=== PATIENT | female | born 1995 | race Caucasian/White ===

== ENCOUNTER 2017-07-18 10:56 | Emergency (ER) | payer OTHER ==
[2017-07-18 11:05] VITALS: BMI 29.5
--- NOTE | 2017-07-18 11:29 | PDOC ---
History of Present Illness - General Chief Complaint: Vomiting/Diarrhea Stated Complaint: DIARRHEA/VOMITING Time Seen by Provider: 07/18/17 11:14 History Source: Patient Exam Limitations: No Limitations - History of Present Illness Initial Comments: 07/18/17 11:29 The patient is a 22F with no PMH who presents to the ER with complaints of nausea, vomiting, diarrhea, and abdominal pain. The patient states that she's had a diarrhea since 4 days ago which progressed to nausea and vomiting yesterday. She vomited 7 times yesterday, NBNB. She states she had a fever of 101 yesterday which she took motrin for and it resolved. She describes suprapubic and epigastric abdominal pressure, nonradiating, not exacerbated or alleviated by anything. LMP now. She denies any recent travel, sick contacts, or abx use. Past History - Past Medical History Allergies/Adverse Reactions: Allergies Allergy/AdvReac Type Severity Reaction Status Date / Time No Known Allergies Allergy Verified 07/18/17 11:04 Home Medications: Ambulatory Orders Ondansetron [Zofran -] 4 mg PO BID #14 tablet 07/18/17 Asthma: No Cancer: No Cardiac Disorders: No COPD: No Diabetes: No HTN: No Seizures: No Thyroid Disease: No - Immunization History Td Vaccination: No Immunization Up to Date: Yes - Suicide/Smoking/Psychosocial Hx Smoking Status: No Smoking History: Never smoked Have you smoked in the past 12 months: No Number of Cigarettes Smoked Daily: 0 Cigars Per Day: 0 Hx Alcohol Use: No Drug/Substance Use Hx: No Hx Substance Use Treatment: No Review of Systems - Review of Systems Able to Perform ROS?: Yes Comments:: 07/18/17 11:46 GENERAL/CONSTITUTIONAL: No fever or chills. No weakness. HEAD, EYES, EARS, NOSE AND THROAT: No change in vision. No ear pain or discharge. No sore throat. CARDIOVASCULAR: No chest pain, palpitations, or lightheadedness. RESPIRATORY: No cough, wheezing, shortness of breath, or hemoptysis. GASTROINTESTINAL: Positive for nausea, vomiting, diarrhea, and abdominal pain. GENITOURINARY: No dysuria, frequency, hematuria, or change in urination. MUSCULOSKELETAL: No joint or muscle swelling or pain. No neck or back pain. SKIN: No rash or lesions. NEUROLOGIC: No headache, numbness, tingling, weakness, loss of consciousness, or change in strength/sensation. ENDOCRINE: No increased thirst. No abnormal weight change. HEMATOLOGIC/LYMPHATIC: No anemia, easy bleeding, or history of blood clots. ALLERGIC/IMMUNOLOGIC: No hives or skin allergy. Is the patient limited Macanese proficient: No *Physical Exam - Vital Signs Last Vital Signs Temp Pulse Resp BP Pulse Ox 98.6 F 82 18 111/69 99 07/18/17 11:02 07/18/17 11:02 07/18/17 11:02 07/18/17 11:02 07/18/17 11:02 - Physical Exam Comments: 07/18/17 11:56 GENERAL: Well developed, well nourished. Awake and alert. No acute distress. HEENT: Normocephalic, atraumatic. Hearing grossly normal. Moist mucous membranes. PERRLA, EOMI. No conjunctival pallor. Sclera are non-icteric. Oropharynx is clear. NECK: Supple. Full ROM. No JVD. Carotid pulses 2+ and symmetric, without bruits. No thyromegaly. No lymphadenopathy. CARDIOVASCULAR: Regular rate and rhythm. No murmurs, rubs, or gallops. Distal pulses are 2+ and symmetric. PULMONARY: No evidence of respiratory distress. Lungs clear to auscultation bilaterally. No wheezing, rales or rhonchi. ABDOMINAL: Soft. Tender to deep palpation in epigastrium and b/l lower quadrants. No McBurney's point tenderness. Negative garcia's. Non-distended. No rebound or guarding. No organomegaly. Normoactive bowel sounds. GENITOURINARY: L CVA tenderness. MUSCULOSKELETAL: Normal range of motion at all joints. No bony deformities or tenderness. EXTREMITIES: No cyanosis. No clubbing. No edema. No calf tenderness or swelling. SKIN: Warm and dry. Normal capillary refill. No rashes. No jaundice. NEUROLOGICAL: Alert, awake, appropriate. Cranial nerves 2-12 intact. Normal speech. Gait is normal without ataxia. PSYCHIATRIC: Cooperative. Good eye contact. Appropriate mood and affect. ED Treatment Course - LABORATORY CBC & Chemistry Diagram: 07/18/17 11:40 07/18/17 11:40 Medical Decision Making - Medical Decision Making 07/18/17 11:58 The patient is a 22F with no PMH who presents to the ER with 4 days of nausea, vomiting, diarrhea. Will send basic labs, UA, and lipase to evaluate for acute intraabdominal pathology. She has no guarding or rebound and I am not concerned for peritonitis. Will give fluids, zofran, and pepcid and reassess. 07/18/17 13:14 Pt states she feels much better. Will give 1 more L and reassess. Will give juice for PO challenge. 07/18/17 15:19 Pt tolerated the PO challenge and feels better. Abdomen soft nontender. Will d/ c home with PCP f/u. *DC/Admit/Observation/Transfer Diagnosis at time of Disposition: Nausea & vomiting Qualifiers: Vomiting type: unspecified Vomiting Intractability: non-intractable Qualified Code(s): R11.2 - Nausea with vomiting, unspecified - Discharge Dispostion Disposition: HOME Condition at time of disposition: Stable Decision to Admit order: No - Prescriptions Prescriptions: Ondansetron [Zofran -] 4 mg PO BID #14 tablet - Referrals Referrals: [facility] [place] [Provider Group] - Patient Instructions Printed Discharge Instructions: Nausea and Vomiting-Adult Additional Instructions: Please follow up with your primary care physician in 2-3 days. Please return to the ER if you have any signs or symptoms of chest pain, shortness of breath, uncontrollable fever, chills, nausea, vomiting, numbness, tingling, or weakness in any part of your body, changes in vision, or slurred speech. Please take your medications as prescribed. Please return to the ER if symptoms persist, worsen, or new symptoms arise. - Post Discharge Activity
[2017-07-18] MEDS ORDERED: SODIUM CHLORIDE 0.9% 1000 ML INFUS.BAG IV ONE ×2 (11:30→13:14)
[2017-07-18] MEDS ORDERED: ONDANSETRON 4 MG/2 ML VIAL IVPUSH ONE (11:30)
[2017-07-18] MEDS ORDERED: FAMOTIDINE 20 MG/50 ML IVPB 20 MG/50 ML MG IVPB ONE (11:30)
[2017-07-18] MEDS ORDERED: ONDANSETRON 4 MG/2 ML VIAL ONE (11:39)
[2017-07-18 11:54] LABS: BASO % 0.5 % (0-2.0); EOS % 0.3 % (0-4.5); HEMATOCRIT 39.5 % (32.4-45.2); HEMOGLOBIN 13.5 GM/dL (10.7-15.3); LYMPH % 14.8 % (8-40); MCHC 34.3 g/dl (32.0-36.0); MEAN CELL VOLUME 87.4 fl (80-96); MONO % 4.1 % (3.8-10.2); NEUT % 80.3 % (42.8-82.8); PLATELET COUNT 304 K/MM3 (134-434); RBC 4.52 M/mm3 (3.60-5.2); RDW 13.7 % (11.6-15.6); WHITE BLOOD COUNT 7.1 K/mm3 (4.0-10.0)
[2017-07-18 12:40] LABS: ALBUMIN 3.7 g/dl (3.4-5.0); ALK PHOS 113 U/L (45-117); ANION GAP 8 (8-16); BILIRUBIN,TOTAL 0.2 mg/dL (0.2-1.0); BLOOD UREA NITROGEN 10 mg/dL (7-18); CALCIUM 8.3 mg/dL (8.5-10.1); CHLORIDE 105 mmol/L (98-107); CO2 23 mmol/L (21-32); CREATININE 0.7 mg/dL (0.55-1.02); GLUCOSE,RANDOM 85 mg/dL (74-106); LIPASE 167 U/L (73-393); POTASSIUM 3.4 mmol/L (3.5-5.1); SGOT/AST 45 U/L (15-37); SGPT/ALT 40 U/L (12-78); SODIUM 136 mmol/L (136-145); TOT PROT 7.7 g/dl (6.4-8.2)
--- NOTE | 2017-07-18 13:19 | PDOC ---
Attending Attestation - Resident Resident Name: Adriel Whiteside - ED Attending Attestation I have performed the following: I have examined & evaluated the patient, The case was reviewed & discussed with the resident, I agree w/resident's findings & plan, Exceptions are as noted - HPI HPI: 07/18/17 13:20 22 yo F with no pmhx here with 4 days of n/v/d. no sick contacts. no recent antiobiotics. no travel. no mod factors. c/o mild epigastric and bilat lower quad abd pain. pt is currenlty menstruating, not . pain is mild crampy, no mod factors. - Physicial Exam PE: 07/18/17 13:17 awake alert lungs clear no crackles. heart rrr no mrg. abd soft mild epigastric ttp, lower quad ttp. ext wwp. no edema. no cva tenderness. nuero alert oriented moves all four ext. 07/18/17 13:17 - Medical Decision Making 07/18/17 13:18 n/v/d x 4 . differential: gastritis, dehydration renal failure, pancreatitis. . plan iv hydration, labs lipase, antiemetics, antacid, reassess.
[2017-07-18 13:33] LABS: URINE APPEARANCE CLEAR; URINE BILIRUBIN NEGATIVE (<2.0 mg/dL); URINE COLOR LTYELLOW; URINE GLUCOSE (UA) NEGATIVE (NEGATIVE); URINE KETONE 1+ (NEGATIVE); URINE LEUK ESTERASE NEGATIVE (NEGATIVE); URINE NITRITE NEGATIVE (NEGATIVE); URINE PROTEIN NEGATIVE (NEGATIVE); URINE UROBILINOGEN NEGATIVE mg/dL (0.2-1.0)
[2017-07-18 13:53] LABS: EPI CELLS RARE /HPF (FEW); URINE MUCUS RARE
[2017-07-18] MEDS ORDERED: MAG HYDROX/AL HYDROX/SIMETH 30 ML UNIT-DOSE CUP PO ONE (14:50)
[2017-07-18] MEDS ORDERED: LIDOCAINE VISCOUS 2% ORAL/TOP 20 ML UNIT-DOSE CUP MM ONE (14:51)
[2017-07-18 14:54] VITALS: BP 108/63; PULSE 80; TEMP 98.1
[2017-07-18] MEDS ORDERED: LIDOCAINE VISCOUS 2% ORAL/TOP 20 ML UNIT-DOSE CUP ONE (14:56)
[2017-07-18] MEDS ORDERED: MAG HYDROX/AL HYDROX/SIMETH 30 ML UNIT-DOSE CUP ONE (14:56)
== END 2017-07-18 15:46 | disposition home or self-care (01) ==
LOC: JER 10:56
PROC: 3E033GC Introduction of Other Therapeutic Substance into Peripheral Vein, Percutaneous Approach (ICD-10-PCS; principal; 2017-07-18)
PROC: 3E033GC Introduction of Other Therapeutic Substance into Peripheral Vein, Percutaneous Approach (ICD-10-PCS; 2017-07-18)
DX: R19.8 Other specified symptoms and signs involving the digestive system and abdomen (principal); R11.2 Nausea with vomiting, unspecified
CPT/HCPCS: 36415; 80053; 81003; 81015; 83690; 84703; 85025; 87086; 96365; 96375; 99282-25; J7030

== ENCOUNTER 2017-12-18 15:28 | Emergency (ER) | payer OTHER ==
[2017-12-18] MEDS ORDERED: FAMOTIDINE 20 MG/50 ML IVPB 20 MG/50 ML MG IVPB ONE ×3 (16:15→17:23)
[2017-12-18] MEDS ORDERED: ONDANSETRON 4 MG/2 ML VIAL IVPB ONE (16:15)
--- NOTE | 2017-12-18 16:18 | PDOC ---
Rapid Medical Evaluation Chief Complaint: Nausea/Vomiting Time Seen by Provider: 12/18/17 16:13 Medical Evaluation: Allergies Allergy/AdvReac Type Severity Reaction Status Date / Time No Known Allergies Allergy Verified 10/08/17 12:26 12/18/17 16:13 c/o 5-6 x vomiting and epuigastric pain today. currently 22 weeks . denies vaginal bleeding and abdominal cramping. PE: patient alert Ox3. gravid abdomen, tachycardia A: abdominal pain P; labs IVF pepcid patient to the ER for further management of care. Discharge Disposition - Diagnosis Nausea and vomiting during - Referrals Referrals: Jacob Cunningham MD [Primary Care Provider] - - Patient Instructions - Post Discharge Activity
[2017-12-18 16:24] VITALS: TEMP 98.4; BMI 27.3
[2017-12-18] MEDS ORDERED: SODIUM CHLORIDE 1,000 ML IV STA (16:42)
[2017-12-18] MEDS ORDERED: ONDANSETRON 4 MG/2 ML VIAL ONE (16:50)
--- NOTE | 2017-12-18 16:51 | PDOC ---
Attending Attestation - HPI HPI: 12/18/17 17:37 The patient is a 22-year-old female, 22 weeks , presents to the emergency department complaining of nausea and vomiting for the past 2 days. The patient reports having multiple episodes of NBNB emesis, associated with epigastric pain. - Medical Decision Making 12/18/17 17:37 Documentation prepared by Ashley Brito, acting as medical administrator for Gilbert Graff MD. <Ashley Brito - Last Filed: 12/18/17 17:37> - Resident Resident Name: Evie Romero - ED Attending Attestation I have performed the following: I have examined & evaluated the patient, The case was reviewed & discussed with the resident, I agree w/resident's findings & plan, Exceptions are as noted - Physicial Exam PE: 12/18/17 18:39 Patient is awake and alert, well-appearing, normotensive, afebrile; Normocephalic, atraumatic PERRLA, EOMI, conjunctiva are pink CTA RRR Abdomen is soft, with a fundus of a gravid uterus palpable above the umbilicus; nontender to palpation; No lower extremity edema no rash - Medical Decision Making 12/18/17 18:40 patient is 22-year-old female,a 3 para 2, At 22 weeks gestation by LMP who presents with several episodes of nausea and nonbloody nonbilious vomiting. Patient is afebrile and normotensive. I do not suspect help syndrome or preeclampsia at this time. There is no right upper quadrant tenderness or lower extremity edema. CBC reveals normal platelets and CMP reveals normal LFTs. Urinalysis shows 1+ proteinuria only with numerous epithelial cells. There are 16 WBCs per high-power field consistent with asymptomatic bacteriuria. Patient' s received IV fluids, H2 blockers and has tolerated by mouth. Patient currently is asymptomatic without any focal tenderness. Will discharge with Diclegis for nausea and Keflex for bacteriuria with OB follow-up. <Gilbert Graff - Last Filed: 12/18/17 18:43>
--- NOTE | 2017-12-18 16:57 | PDOC ---
History of Present Illness - General Chief Complaint: Nausea Stated Complaint: Nausea/Vomiting/ABD PAIN Time Seen by Provider: 12/18/17 16:13 History Source: Patient Exam Limitations: No Limitations - History of Present Illness Initial Comments: 12/18/17 16:50 This is a 22 year old female , who is 22 weeks that follows up with regularly with [facility], with history of hyperemeisis, presenting with nausea and vomiting for two days. States that yesterday she ate rice, and was unable to hold down food all day. She vomiting 6 times today, endorses retching , and blood tinged sputum and epigastric tenderness. Denies fever, chills, cough , chest pain, shortness of breath, abdominal pain/pelvic pain, leg swelling, or sick contacts. Last OB appointment was last week, which was normal. Past History - Past Medical History Allergies/Adverse Reactions: Allergies Allergy/AdvReac Type Severity Reaction Status Date / Time No Known Allergies Allergy Verified 12/18/17 16:16 Home Medications: Ambulatory Orders Ondansetron [Zofran -] 4 mg PO BID #14 tablet 09/16/17 Doxylamine Succinate/Vit B6 [Yann Shaw 10-10 mg Tablet] 1 each PO DAILY #10 tablet. 10/08/17 Famotidine [Pepcid -] 20 mg PO DAILY 7 Days #7 tablet 10/08/17 Metoclopramide HCl [Reglan -] 10 mg PO DAILY #7 tablet 10/08/17 Cephalexin [Keflex] 500 mg PO BID 5 Days #10 capsule 12/18/17 Doxylamine Succinate/Vit B6 [Yann Shaw 10-10 mg Tablet] 1 each PO Q12H PRN 5 Days #10 tablet. 12/18/17 Asthma: No Cancer: No Cardiac Disorders: No COPD: No DVT: No Diabetes: No HTN: No Seizures: No Thyroid Disease: No - Immunization History Td Vaccination: No Immunization Up to Date: Yes - Suicide/Smoking/Psychosocial Hx Smoking Status: No Smoking History: Never smoked Have you smoked in the past 12 months: No Number of Cigarettes Smoked Daily: 0 Cigars Per Day: 0 Hx Alcohol Use: No Drug/Substance Use Hx: No Substance Use Type: None Hx Substance Use Treatment: No Review of Systems - Review of Systems Able to Perform ROS?: Yes Is the patient limited Khmer proficient: No Constitutional: Yes: Weight Stable. No: Chills, Diaphoresis, Fever, Night Sweats, Weakness HEENTM: No: Blurred Vision, Tearing Respiratory: Yes: Other (blood tinged sputum). No: Cough, Orthopnea, Shortness of Breath, SOB with Exertion, Wheezing, Productive cough Cardiac (ROS): No: Chest Pain, Edema, Irregular Heart Rate, Lightheadedness, Palpitations ABD/GI: Yes: Nausea, Poor Appetite, Poor Fluid Intake, Indigestion. No: Abdominal Distended, Difficulty Swallowing : No: Burning, Dysuria, Discharge Neurological: No: Headache, Numbness, Paresthesia, Seizure, Tingling, Tremors Endocrine: No: Excessive Sweating, Flushing, Intolerance to Heat, Increased Hunger Hematologic/Lymphatic: No: Anemia, Blood Clots *Physical Exam - Vital Signs Last Vital Signs Temp Pulse Resp BP Pulse Ox 98.4 F 71 18 113/70 99 12/18/17 16:16 12/18/17 16:16 12/18/17 16:16 12/18/17 16:16 12/18/17 16:16 - Physical Exam General Appearance: Yes: Appropriately Dressed HEENT: positive: Normal Voice, Pharynx Normal. negative: Pharyngeal Erythema, Tonsillar Erythema, Nasal Congestion, Sinus Tenderness Neck: negative: Normal Thyroid, Lymphadenopathy (R), Lymphadenopathy (L) Respiratory/Chest: positive: Lungs Clear, Normal Breath Sounds. negative: Chest Tender, Respiratory Distress, Crackles, Wheezing Cardiovascular: positive: Regular Rhythm, Regular Rate, S1, S2. negative: Edema , JVD, Murmur Vascular Pulses: Carotid (R): 2+, Carotid (L): 2+ Gastrointestinal/Abdominal: positive: Normal Bowel Sounds, Tender (mid epigastric tenderness), Soft. negative: Pulsatile Mass, Guarding Extremity: positive: Normal Inspection Integumentary: positive: Normal Color Neurologic: positive: Fully Oriented, Alert, Normal Mood/Affect ED Treatment Course - LABORATORY CBC & Chemistry Diagram: 12/18/17 17:01 12/18/17 17:01 Medical Decision Making - Medical Decision Making 12/18/17 17:00 This is a 22 year old female , 22 weeks , with history of hyperemesis, intractable vomiting. R/o infectious process, preeclampisa, will treat with antiemetic and fluids. Reevalute. #N/V: -lactated ringer; cbc. cmp. mg. ua 12/18/17 18:22 -cbc, lfts, electrolytes wnl -patient feels better -will dc home with with doxylamine and vitamin b6 12/18/17 18:38 -Nausea/vomiting; treat with doxylamine/pyridoxine; 1 tab bid prn -Asymptomatic bacteremia; keflex 500bid x 5 days. -dc home; follow up with [facility] *DC/Admit/Observation/Transfer Diagnosis at time of Disposition: Nausea and vomiting during , Asymptomatic bacteriuria Nausea & vomiting Qualifiers: Vomiting Intractability: unspecified - Discharge Dispostion Disposition: HOME Condition at time of disposition: Improved Decision to Admit order: No - Prescriptions Prescriptions: Doxylamine Succinate/Vit B6 [Yann Shaw 10-10 mg Tablet] 1 each PO Q12H PRN 5 Days #10 tablet. PRN Reason: Nausea And/Or Vomiting - Referrals Referrals: Jacob Cunningham MD [Primary Care Provider] - - Patient Instructions Additional Instructions: Ms Contreras, you have nausea and vomiting, treated with fluids and anti nausea medication. We sent a script to pharmacy to take medications as needed for nausea twice a day. We are also treating you for bacteria in your urine. Please take antibiotic, keflex, 500mg twice a day for five days. 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 - Post Discharge Activity
[2017-12-18] MEDS ORDERED: DEXTROSE 5%-LACTATED RINGERS 1,000 ML IV SCH (17:00)
[2017-12-18 17:31] LABS: BASO % 0.2 % (0-2.0); EOS % 1.3 % (0-4.5); HEMATOCRIT 34.7 % (32.4-45.2); HEMOGLOBIN 12.3 GM/dL (10.7-15.3); LYMPH % 12.3 % (8-40); MCH 32.5 pg (25.7-33.7); MCHC 35.3 g/dl (32.0-36.0); MEAN CELL VOLUME 91.9 fl (80-96); MEAN PLT VOLUME 9.6 fl (7.5-11.1); MONO % 4.4 % (3.8-10.2); NEUT % 81.8 % (42.8-82.8); PLATELET COUNT 303 K/MM3 (134-434); RBC 3.78 M/mm3 (3.60-5.2); RDW 14.2 % (11.6-15.6); WHITE BLOOD COUNT 9.1 K/mm3 (4.0-10.0)
[2017-12-18 17:50] LABS: URINE APPEARANCE CLOUDY; URINE BILIRUBIN NEGATIVE (<2.0 mg/dL); URINE COLOR DKYELLOW; URINE GLUCOSE (UA) NEGATIVE (NEGATIVE); URINE KETONE 2+ (NEGATIVE); URINE LEUK ESTERASE 1+ (NEGATIVE); URINE NITRITE NEGATIVE (NEGATIVE); URINE PROTEIN 1+ (NEGATIVE)
[2017-12-18 18:12] LABS: ALBUMIN 2.9 g/dl (3.4-5.0); ALK PHOS 86 U/L (45-117); ANION GAP 10 MMOL/L (8-16); BILIRUBIN,TOTAL 0.3 mg/dL (0.2-1); BLOOD UREA NITROGEN 9 mg/dL (7-18); CALCIUM 8.6 mg/dL (8.5-10.1); CHLORIDE 104 mmol/L (98-107); CO2 24 mmol/L (21-32); CREATININE 0.4 mg/dL (0.55-1.3); GLUCOSE,RANDOM 68 mg/dL (74-106); LIPASE 204 U/L (73-393); POTASSIUM 3.7 mmol/L (3.5-5.1); SGOT/AST 23 U/L (15-37); SGPT/ALT 15 U/L (13-61); SODIUM 137 mmol/L (136-145); TOT PROT 6.8 g/dl (6.4-8.2)
[2017-12-18 18:30] LABS: EPI CELLS MANY /HPF (FEW); URINE BACTERIA RARE /hpf (NONE SEEN); URINE MUCUS MANY
[2017-12-18 19:07] VITALS: BP 103/57; PULSE 70
[2017-12-18 20:07] LABS: MAGNESIUM 2.1 mg/dL (1.8-2.4)
== END 2017-12-18 19:07 | disposition home or self-care (01) ==
LOC: JER 15:28
PROC: 3E033GC Introduction of Other Therapeutic Substance into Peripheral Vein, Percutaneous Approach (ICD-10-PCS; principal; 2017-12-18)
PROC: 3E033GC Introduction of Other Therapeutic Substance into Peripheral Vein, Percutaneous Approach (ICD-10-PCS; 2017-12-18)
PROC: 3E0337Z Introduction of Electrolytic and Water Balance Substance into Peripheral Vein, Percutaneous Approach (ICD-10-PCS; 2017-12-18)
PROC: 3E0337Z Introduction of Electrolytic and Water Balance Substance into Peripheral Vein, Percutaneous Approach (ICD-10-PCS; 2017-12-18)
DX: O26.892 Other specified pregnancy related conditions, second trimester (principal); O21.9 Vomiting of pregnancy, unspecified; O21.2 Late vomiting of pregnancy; R82.71 Bacteriuria; Z3A.22 22 weeks gestation of pregnancy
CPT/HCPCS: 36415; 80053; 81003; 81015; 83690; 83735; 85025; 96361; 96365; 96375; 99283-25; J7030

== ENCOUNTER 2018-03-18 12:06 | Emergency (ER) | payer OTHER ==
[2018-03-18 12:21] VITALS: BMI 25.0
[2018-03-18] MEDS ORDERED: ONDANSETRON *ODT* 4 MG TABLET SL ONE (13:05)
[2018-03-18] MEDS ORDERED: ACETAMINOPHEN 650 MG/20.3 ML ORAL SOLUTION (CUPS) PO ONE (13:05)
[2018-03-18] MEDS ORDERED: ALBUTEROL SO4 2.5/IPRATROPIUM 0.5 INH SOL 3 ML VIAL.NEB. NEB ONE ×2 (13:05→13:08)
--- NOTE | 2018-03-18 13:05 | PDOC ---
History of Present Illness - General Chief Complaint: Cold Symptoms Stated Complaint: SICK Time Seen by Provider: 03/18/18 12:40 History Source: Patient Exam Limitations: No Limitations - History of Present Illness Initial Comments: 03/18/18 18:55 Patient is a 22-year-old female currently 35 weeks who presents with 2 days of fever, cough, body aches, nausea and chest tightness. Patient states that her son recently had similar symptoms. Patient states that it hurts to take a deep breath and that it and that it feels tight. She's tried taking Tylenol at home with minimal relief of her symptoms. Patient did not receive a flu shot this year. Denies sore throat, runny nose, shortness of breath, chest pain, vomiting, diarrhea, dizziness, weakness and vaginal bleeding. Past History - Travel Traveled outside of the country in the last 30 days: No Close contact w/someone who was outside of country & ill: No - Past Medical History Allergies/Adverse Reactions: Allergies Allergy/AdvReac Type Severity Reaction Status Date / Time No Known Allergies Allergy Verified 03/18/18 14:45 Home Medications: Ambulatory Orders Doxylamine Succinate/Vit B6 [Yann Shaw 10-10 mg Tablet] 1 each PO DAILY #10 tablet. 10/08/17 Acetaminophen [Tylenol] 650 mg PO QID PRN 03/18/18 Albuterol 0.083% Nebulizer Mariama [Ventolin 0.083% Nebulizer Soln -] 1 neb NEB Q6H #20 vial 03/18/18 Oseltamivir Phosphate [Tamiflu] 75 mg PO BID #10 capsule 03/18/18 Asthma: No Cancer: No Cardiac Disorders: No COPD: No DVT: No Diabetes: No HTN: No Seizures: No Thyroid Disease: No - Immunization History Td Vaccination: No Immunization Up to Date: Yes - Suicide/Smoking/Psychosocial Hx Smoking Status: No Smoking History: Never smoked Have you smoked in the past 12 months: No Number of Cigarettes Smoked Daily: 0 Cigars Per Day: 0 Hx Alcohol Use: No Drug/Substance Use Hx: No Substance Use Type: None Hx Substance Use Treatment: No Review of Systems - Review of Systems Able to Perform ROS?: Yes Comments:: 03/18/18 17:48 CONSTITUTIONAL: Present: Fever, chills, body aches Absent: diaphoresis, generalized weakness, malaise, loss of appetite HEENT: Present: rhinorrhea, nasal congestion, throat pain. Absent: difficulty swallowing, mouth swelling, ear pain, eye pain, visual Changes CARDIOVASCULAR: Absent: chest pain, loss of consciousness, palpitations, irregular heart rate, peripheral edema RESPIRATORY: Present: Cough Absent: shortness of breath, dyspnea with exertion, orthopnea, wheezing, stridor, hemoptysis GASTROINTESTINAL: Absent: abdominal pain, abdominal distension, nausea, vomiting, diarrhea, constipation, melena, hematochezia SKIN: Absent: rash, itching, pallor NEUROLOGIC: Present: headache Absent: focal weakness or paresthesias, dizziness, unsteady gait, seizure, mental status changes, bladder or bowel incontinence Is the patient limited Wolof proficient: No *Physical Exam - Vital Signs Last Vital Signs Temp Pulse Resp BP Pulse Ox 98.7 F 106 H 26 H 103/64 98 03/18/18 12:19 03/18/18 12:19 03/18/18 12:19 03/18/18 12:19 03/18/18 12:19 - Physical Exam Comments: 03/18/18 18:55 GENERAL: Well developed, well nourished. Awake and alert. No acute distress. HEENT: Normocephalic, atraumatic. PERRLA, EOMI. No conjunctival pallor. Sclera are non- icteric. Moist mucous membranes. Oropharynx is clear. NECK: Supple. Full ROM. No JVD. Carotid pulses 2+ and symmetric, without bruits. No thyromegaly. No lymphadenopathy. CARDIOVASCULAR: Regular rate and rhythm. No murmurs, rubs, or gallops. Distal pulses are 2+ and symmetric. PULMONARY: No evidence of respiratory distress. Lungs clear to auscultation bilaterally. No wheezing, rales or rhonchi. ABDOMINAL: Soft. Non-tender. Non-distended. No rebound or guarding. No organomegaly. Normoactive bowel sounds. MUSCULOSKELETAL Normal range of motion at all joints. No bony deformities or tenderness. No CVA tenderness. EXTREMITIES: No cyanosis. No clubbing. No edema. No calf tenderness. SKIN: Warm and dry. Normal capillary refill. No rashes. No jaundice. NEUROLOGICAL: Alert, awake, appropriate. Cranial nerves 2-12 intact. No deficits to light touch and temperature in face, upper extremities and lower extremities. No motor deficits in the in face, upper extremities and lower extremities. Normoreflexic in the upper and lower extremities. Normal speech. Toes are down- going bilaterally. Gait is normal without ataxia. PSYCHIATRIC: Cooperative. Good eye contact. Appropriate mood and affect. Moderate Sedation - Procedure Monitoring Vital Signs: Procedure Monitoring Vital Signs Temperature 98.7 F 03/18/18 12:19 Pulse Rate 106 H 03/18/18 12:19 Respiratory Rate 26 H 03/18/18 12:19 Blood Pressure 103/64 03/18/18 12:19 O2 Sat by Pulse Oximetry (%) 98 03/18/18 12:19 Medical Decision Making - Medical Decision Making 03/18/18 18:57 Patient is a 22-year-old female who presents to the ER for 2 days of flulike symptoms. Zofran and DuoNeb given with relief of symptoms in the ER. Patient reports being able to take a deep breath after medication. Patient is flu a positive. Per Dr. Monge; can treat with Tamiflu we will start at this time. Patient to go up to L&D for monitoring Discharge home I discussed the physical exam findings, ancillary test results and final diagnoses with the patient. I answered all of the patient's questions. The patient was satisfied with the care received and felt comfortable with the discharge plan and treatment plan. The Patient agrees to follow up with the primary care physician/specialist within 24-72 hours. Return precautions were given. *DC/Admit/Observation/Transfer Diagnosis at time of Disposition: Influenza A - Discharge Dispostion Disposition: HOME Condition at time of disposition: Stable Decision to Admit order: No - Referrals Referrals: Josiah Louis MD [Primary Care Provider] - - Patient Instructions Printed Discharge Instructions: DI for Influenza -- Adult Additional Instructions: You have the flu. This is a virus that will get better on its own in approximately 7-10 days. You will most likely have a fever for 7-10 days because of the flu. This is to be expected. Drink plenty of fluids to prevent dehydration and get plenty of rest. Warm tea and cough drops may help your symptoms as well. Take Tylneol as directed for pain and fever. Use the albuterol every 4 hours as needed for shortness of breath Take all other medications as prescribed. Follow up with your primary care doctor this week Return to the ED for difficulty breathing, shortness of breath, weakness, or if you have any other changes in your symptoms. - Post Discharge Activity
[2018-03-18] MEDS ORDERED: ACETAMINOPHEN 650 MG/20.3 ML ORAL SOLUTION (CUPS) ONE (13:08)
[2018-03-18] MEDS ORDERED: ONDANSETRON *ODT* 4 MG TABLET ONE (13:08)
[2018-03-18 15:01] VITALS: BP 111/59; PULSE 100; TEMP 98.6
[2018-03-18] MEDS ORDERED: DEXTROSE 5%-LACTATED RINGERS 1,000 ML IV SCH ×3 (15:30)
== END 2018-03-18 16:35 | disposition home or self-care (01) ==
LOC: JERFT 12:06 → JER 12:06
PROC: 3E0F7GC Introduction of Other Therapeutic Substance into Respiratory Tract, Via Natural or Artificial Opening (ICD-10-PCS; principal; 2018-03-18)
DX: O26.893 Other specified pregnancy related conditions, third trimester (principal); Z3A.35 35 weeks gestation of pregnancy; J09.X2 Influenza due to identified novel influenza A virus with other respiratory manifestations
CPT/HCPCS: 87804; 99281-25; Q0162

== ENCOUNTER 2018-04-16 12:25 | Inpatient (IN) | payer OTHER ==
[2018-04-16] MEDS ORDERED: DINOPROSTONE 10 MG VAGINAL SUPPOSITORY VG ONE (13:15)
[2018-04-16 14:09] LABS: BASO % 0.8 % (0-2.0); EOS % 0.6 % (0-4.5); HEMATOCRIT 35.3 % (32.4-45.2); HEMOGLOBIN 12.1 GM/dL (10.7-15.3); LYMPH % 25.2 % (8-40); MCH 30.6 pg (25.7-33.7); MCHC 34.2 g/dl (32.0-36.0); MEAN CELL VOLUME 89.7 fl (80-96); MEAN PLT VOLUME 10.1 fl (7.5-11.1); MONO % 4.5 % (3.8-10.2); NEUT % 68.9 % (42.8-82.8); PLATELET COUNT 309 K/MM3 (134-434); RBC 3.93 M/mm3 (3.60-5.2); WHITE BLOOD COUNT 11.7 K/mm3 (4.0-10.0)
[2018-04-16 14:12] VITALS: BMI 28.9
--- NOTE | 2018-04-16 14:28 | HP ---
Past Medical History - Primary Care Physician PCP:: Rosy Gotti - Admission Chief Complaint: 23 yrs g#p2002 , 39.2/7 weeks by dates & sono admitted for induction of labor as recommended by [facility] today . sono 04/16/18 39.2 weeks, sliup , vx, fhr 118 -120 , , JIGAR 9.9, BPP / BM -0, FT -2, FM-2 , Nst reactive -2 , EFW 2817 gm ( 6'3" ) ( 8 %tile) , UA & MCAdopplers normal . Rt Branchial cyst History of Present Illness: pnc at [address] [place] [address] . wt gain 3 lbs only panel 08/23/17 : O Pos, Rpr nr, Hbsag neg, Rubella immune,Hiv neg , gc/ ct neg , sickle neg ,varicella immune , sickle neg h/o Pos PPD , Chest Xray 04/09/18 neg . 01/12/18 1 hr gtt 96, rpr nr 02/17/18 Bv pos treated 03/25/18 GBS neg < gc/ct neg, Hiv neg , cbc h/h 10.130.6 , plt 351 Serial sono done by [facility] for growth . NT screen & AFP neg History Source: Patient, Medical Record Limitations to Obtaining History: No Limitations - Past Medical History ACUPRESSURIST: No: Seizure Cardiovascular: No: AFIB, HTN Pulmonary: No: Asthma Gastrointestinal: Yes: Constipation Hepatobiliary: No: Hepatitis B Renal/: No: UTI ...: 3 ...Para: 2 ( 08/28 ( 6'11".) & 11/2014 (6'12") at [facility]) ...Term: 2 ...: 0 ...Spon : 0 ...Induced : 0 ...Multiple Gestation: 0 ...LMP: 07/15/17 ... Weeks Gestation by Dates: 39.2 ...EDC by Dates: 04/21/18 ...EDC by Sono: 04/21/18 Heme/Onc: Yes: Anemia (rx vit & iron) Infectious Disease: Yes: STD's (h/o chlamydia treated 2012), Other (Pos ppd , chest xray neg 04/09/18) Endocrine: No: Diabetes Insipidus, Diabetes Mellitus, Hypothyroidism - Past Surgical History Past Surgical History: Yes: None Hx Myomectomy: No Hx Transabdominal Cerclage: No - Smoking History Smoking history: Never smoked Have you smoked in the past 12 months: No Aproximately how many cigarettes per day: 0 - Alcohol/Substance Use Hx Alcohol Use: No History of Substance Use: reports: None Home Medications - Allergies Allergies/Adverse Reactions: Allergies Allergy/AdvReac Type Severity Reaction Status Date / Time No Known Allergies Allergy Verified 03/18/18 14:45 - Home Medications Home Medications: Ambulatory Orders Doxylamine Succinate/Vit B6 [Diclong Shaw 10-10 mg Tablet] 1 each PO DAILY #10 tablet. 10/08/17 Acetaminophen [Tylenol] 650 mg PO QID PRN 03/18/18 Albuterol 0.083% Nebulizer Mariama [Ventolin 0.083% Nebulizer Soln -] 1 neb NEB Q6H #20 vial 03/18/18 Oseltamivir Phosphate [Tamiflu] 75 mg PO BID #10 capsule 03/18/18 Physical Exam - Maternity Vital Signs: Vital Signs Temperature 99.0 F 04/16/18 13:30 Pulse Rate 77 04/16/18 13:30 Respiratory Rate 18 04/16/18 13:30 Blood Pressure 113/48 L 04/16/18 13:30 O2 Sat by Pulse Oximetry (%) Constitutional: Yes: Well Nourished, No Distress Eyes: Yes: WNL HENT: Yes: WNL, Normocephalic Neck: Yes: WNL Cardiovascular: Yes: WNL, Regular Rate and Rhythm Lungs: Clear to auscultation Breast(s): Yes: WNL - Abdominal Exam/OB Fundal Height: 38 Number of Fetuses: Single Presentation: Vertex Contractions: No Monitor Mode: External Heart Rate (range): 110-120 Heart Rate Location: Midline Category: I Accelerations: Uniform Decelerations: None - Vaginal Exam/OB Vaginal Bleediing: No Speculum Exam: No Dilatation (cm): ft Effacement (%): unefface Amniotic Membrane Status: Intact Presentation: Vertex/Position Station: -3 - Physical Exam Musculoskeletal: Yes: WNL Extremities: Yes: WNL. No: Calf Tenderness Edema: LLE: 1+, RLE: 1+ Integumentary: Yes: WNL Deep Tendon Reflex Grade: Normal +2 ...Motor Strength: WNL Psychiatric: Yes: WNL - Labs Lab Results: Laboratory Tests 04/16/18 04/16/18 04/16/18 13:50 13:50 13:50 WBC 11.7 H RBC 3.93 Hgb 12.1 Hct 35.3 MCV 89.7 MCH 30.6 MCHC 34.2 Plt Count 309 Neutrophils % 68.9 PT with INR 10.50 INR 0.89 PTT (Actin FS) 28.2 Sodium 135 L Potassium 4.0 Chloride 104 Carbon Dioxide 23 BUN 9 Creatinine 0.5 L Random Glucose 71 L Calcium 8.9 Laboratory Tests 04/16/18 13:50 Blood Type O POSITIVE Antibody Screen Negative Problem List - Problems (1) with 39 completed weeks gestation Code(s): Z3A.39 - 39 WEEKS GESTATION OF (2) IUGR (intrauterine growth restriction) affecting care of mother Code(s): O36.5990 - MATERN CARE FOR OTH OR SUSP POOR FETL GRTH, UNSP TRI, UNSP Qualifiers: Fetus number: single or unspecified fetus Trimester: third trimester Qualified Code(s): O36.5930 - Maternal care for other known or suspected poor growth, third trimester, not applicable or unspecified (3) Elective induction of labor planned Code(s): ZWM5149 - Assessment/Plan 23 yrs , 39.2 weeks iup, gbs neg, no interval growth( 8%tile) bpp 6/8 , recommend delivery by MFM Plan cervidl insertion at 1.10 Pm Trial of labor for vaginal delivery . Note 1.44 PM fhr noted going down to 70-80 bpm for 7 min , & base line going upto 130-140, sometimes FHR to 200 bpm , gradually appearing like Variable decel , down to 90 bpm until 2.16 PM ( cat-2 ) . after that base line 130-140 bpm UC were not felt generally , sometimes mild palpable , when pt complains, she c /o back ache . Selected Entries 04/16/18 04/16/18 14:00 14:53 Temperature 98.7 F Pulse Rate 73 75 Blood Pressure 121/56 L 118/48 L Plan continue cervidil induction of labor
[2018-04-16 14:30] LABS: INR 0.89 (0.83-1.09); PROTHROMBIN TIME (PATIENT) 10.5 SEC (9.7-13.0)
[2018-04-16] MEDS ORDERED: ELECTROLYTE-148 SOLN 1,000 ML IV SCH (14:30)
[2018-04-16 14:33] LABS: ACTIVATED PTT 28.2 SECONDS (25.2-36.5)
[2018-04-16 14:42] LABS: ANION GAP 9 MMOL/L (8-16); BLOOD UREA NITROGEN 9 mg/dL (7-18); CALCIUM 8.9 mg/dL (8.5-10.1); CHLORIDE 104 mmol/L (98-107); CO2 23 mmol/L (21-32); CREATININE 0.5 mg/dL (0.55-1.3); GLUCOSE,RANDOM 71 mg/dL (74-106); SODIUM 135 mmol/L (136-145)
--- NOTE | 2018-04-16 18:32 | PN ---
Progress Note (short form) - Note Progress Note: 6.17PM pt c/o pain UC 1-2-3 min FHR 120-130 bpm cat-1 pelvic : 1cm/soft /50 %/Vx -3 since tracing is cat-1 for last 4 hrs i will let her ambulate with walking toco Selected Entries 04/16/18 04/16/18 16:00 17:00 Temperature 98.3 F Pulse Rate 75 71 Blood Pressure 108/67 113/56 L Blood Pressure 80 Mean Problem List - Problems (1) with 39 completed weeks gestation Code(s): Z3A.39 - 39 WEEKS GESTATION OF (2) IUGR (intrauterine growth restriction) affecting care of mother Code(s): O36.5990 - MATERN CARE FOR OTH OR SUSP POOR FETL GRTH, UNSP TRI, UNSP Qualifiers: Fetus number: single or unspecified fetus Trimester: third trimester Qualified Code(s): O36.5930 - Maternal care for other known or suspected poor growth, third trimester, not applicable or unspecified (3) Elective induction of labor planned Code(s): GCX6390 -
--- NOTE | 2018-04-16 20:11 | PN ---
Progress Note (short form) - Note Progress Note: 7.50 PM pt c/o pain, requests for pain meds she had epidural for last 2 deliveries pelvic 1-2 cm /60 %/soft /ND vx -3/-2 ext os 3 cm fhr 120 , cat-1 uc q 2-3 min Plan epidural labor analgesia Problem List - Problems (1) with 39 completed weeks gestation Code(s): Z3A.39 - 39 WEEKS GESTATION OF (2) IUGR (intrauterine growth restriction) affecting care of mother Code(s): O36.5990 - MATERN CARE FOR OTH OR SUSP POOR FETL GRTH, UNSP TRI, UNSP Qualifiers: Fetus number: single or unspecified fetus Trimester: third trimester Qualified Code(s): O36.5930 - Maternal care for other known or suspected poor growth, third trimester, not applicable or unspecified (3) Elective induction of labor planned Code(s): SBH4846 -
[2018-04-16] MEDS ORDERED: FENTANYL/BUPIVACAINE/NS/PF - PCEA - 50 ML DISP.SYRIN EP ONE (20:24)
[2018-04-16] MEDS ORDERED: NALOXONE HCL 0.4 MG/ML VIAL IVPUSH PRN (21:58)
[2018-04-16] MEDS ORDERED: FENTANYL/BUPIVACAINE/NS/PF - PCEA - 50 ML DISP.SYRIN EP SCH (22:00)
[2018-04-16] MEDS ORDERED: LIDOCAINE HCL 1% PRESERVATIVE FREE - 30ML VIAL ONE (23:16)
[2018-04-16] MEDS ORDERED: OXYTOCIN 20 UNITS in 0.9% NS 20 UNIT/1,000 ML INFUS.BAG IV ONE (23:16)
--- NOTE | 2018-04-16 23:48 | PN ---
Progress Note (short form) - Note Progress Note: epidural given at9.30 PM 11.15 PM Fully dilated, Vx +3, Membranes bulging out of vulva 11.19 PM AROM clear fluid Cervidil removed FHR 120-110 early decel UC 1-2-3 min pt encouraged to push . Mehta catheter removed 175 ml rose color urine output Selected Entries 04/16/18 04/16/18 22:45 23:00 Temperature 97.8 F Pulse Rate 63 Respiratory 18 Rate Blood Pressure 100/57 L Problem List - Problems (1) with 39 completed weeks gestation Code(s): Z3A.39 - 39 WEEKS GESTATION OF (2) IUGR (intrauterine growth restriction) affecting care of mother Code(s): O36.5990 - MATERN CARE FOR OTH OR SUSP POOR FETL GRTH, UNSP TRI, UNSP Qualifiers: Fetus number: single or unspecified fetus Trimester: third trimester Qualified Code(s): O36.5930 - Maternal care for other known or suspected poor growth, third trimester, not applicable or unspecified (3) Elective induction of labor planned Code(s): [id number] -
--- NOTE | 2018-04-16 23:54 | PN ---
Delivery - Delivery Vaginal Delivery: No Problems, Spontaneous (Baby Girl delivered vx , [place] position, 9/9 , cord around the body tight , oral nasal suction was done ,placenta & membranes delivered completely .perineum, vagina is intact) Type of Anesthesia: Epidural Episiotomy/Laceration: None EBL (cc): 250 (dang output 175 ml ) Delivery, Single - Stages of Labor Date 1st Stage Initiatied: 04/16/18 Time 1st Stage Initiated: 18:00 Date 2nd Stage Initiated: 04/16/18 Time 2nd Stage Initiated: 23:15 Date of Delivery: 04/16/18 Time of Delivery: 23:26 Date Placenta Delivered: 04/16/18 Time Placenta Delivered: 23:30 Placenta: Yes: Spontaneous, Uterine Exploration - Condition of Tire Mold Engraver/Watch And Clock Maker And Repairer Present: No Infant Gender: Female Weight: 5 lb 11 oz Position: Left, OA Total Hours ROM (Hrs/Mins): 11 min - 1 Minute Total Score: 9 10 Minutes Total Score: 9 - Feeding Plan Initial Plan: Elected not to breastfeed exclusively throughout hospitalization Remarks - Remarks Remarks: 23 yrs , 39.2 weeks by Dates & sono admitted for induction of labor due to diminished interval growth . PNC at , [facility] GBS neg Cervidil inserted at 1.00 PM 04/16/18 , removed at 11.19 PM pt v/s stable
[2018-04-17] MEDS ORDERED: BENZOCAINE 20% 57 GM BOTTLE TP PRN
[2018-04-17] MEDS ORDERED: OXYTOCIN 20 UNITS in 0.9% NS 20 UNIT/1,000 ML INFUS.BAG IV SCH
[2018-04-17] MEDS ORDERED: BENZOCAINE 28 GM HEMORRHOIDAL OINTMENT TP PRN
[2018-04-17] MEDS ORDERED: oxyCODONE HCL 5 MG TABLET PO PRN
[2018-04-17] MEDS ORDERED: BISACODYL 10 MG SUPP.RECT RC PRN
[2018-04-17] MEDS ORDERED: METHYLERGONOVINE MALEATE 0.2 MG/1 ML AMP IM PRN
[2018-04-17] MEDS ORDERED: WITCH HAZEL 50% (TUCKS) 40 PAD/JAR PAD TP PRN
[2018-04-17 00:39] LABS: ARTERIAL BLOOD GAS BASE EXCESS -3.2 meq/l (-2-2); ARTERIAL BLOOD GAS pH 7.36 (7.35-7.45)
[2018-04-17 00:47] LABS: ARTERIAL BLD GAS O2 SATURATION 69.5 % (90-98.9); ARTERIAL BLOOD GAS PO2 31.9 mmHg (80-100)
[2018-04-17 00:48] LABS: VENOUS PC02 37.6 mmHg (38-52); VENOUS PH 7.36 (7.32-7.42); VENOUS PO2 32.9 mmHg (28-48)
[2018-04-17] MEDS: IBUPROFEN 600 MG TABLET (FP) PO PRN ×4 (02:08→17:03)
[2018-04-17] MEDS: ACETAMINOPHEN 325 MG TABLET (FP) PO PRN ×4 (02:08→17:02)
[2018-04-17] MEDS: FERROUS SO4 325 MG TABLET (FP) PO SCH ×2 (07:20→17:02)
--- NOTE | 2018-04-17 07:54 | PN ---
Post Progress Note - Subjective Subjective: c/o cramps Post Day: 1 Type of Delivery: Vital Signs: Vital Signs Temperature 98.0 F 04/17/18 06:00 Pulse Rate 66 04/17/18 06:00 Respiratory Rate 18 04/17/18 06:00 Blood Pressure 104/59 L 04/17/18 06:00 O2 Sat by Pulse Oximetry (%) 99 04/16/18 22:45 Breast Exam: Yes: Soft, Other (BF). No: Engorged Uterus: Yes: Fundus Firm, Fundus below umbilicus Lochia: Yes: Rubra Lochia, amount: Moderate Extremities: Yes: Calves non-tender Perineum: Yes: Intact Activity: Ambulating - Labs Labs: CBC WBC 11.7 K/mm3 (4.0-10.0) H 04/16/18 13:50 RBC 3.93 M/mm3 (3.60-5.2) 04/16/18 13:50 Hgb 12.1 GM/dL (10.7-15.3) 04/16/18 13:50 Hct 35.3 % (32.4-45.2) 04/16/18 13:50 MCV 89.7 fl (80-96) 04/16/18 13:50 MCH 30.6 pg (25.7-33.7) 04/16/18 13:50 MCHC 34.2 g/dl (32.0-36.0) 04/16/18 13:50 RDW 14.0 % (11.6-15.6) 04/16/18 13:50 Plt Count 309 K/MM3 (134-434) 04/16/18 13:50 MPV 10.1 fl (7.5-11.1) 04/16/18 13:50 Absolute Neuts (auto) 8.1 K/mm3 (1.5-8.0) H 04/16/18 13:50 Neutrophils % 68.9 % (42.8-82.8) 04/16/18 13:50 Lymphocytes % 25.2 % (8-40) D 04/16/18 13:50 Monocytes % 4.5 % (3.8-10.2) 04/16/18 13:50 Eosinophils % 0.6 % (0-4.5) 04/16/18 13:50 Basophils % 0.8 % (0-2.0) D 04/16/18 13:50 Nucleated RBC % 0 % (0-0) 04/16/18 13:50 Problem List - Problems (1) with 39 completed weeks gestation Code(s): Z3A.39 - 39 WEEKS GESTATION OF (2) IUGR (intrauterine growth restriction) affecting care of mother Code(s): O36.5990 - MATERN CARE FOR OTH OR SUSP POOR FETL GRTH, UNSP TRI, UNSP Qualifiers: Fetus number: single or unspecified fetus Trimester: third trimester Qualified Code(s): O36.5930 - Maternal care for other known or suspected poor growth, third trimester, not applicable or unspecified (3) Elective induction of labor planned Code(s): [id number] - (4) Vaginal delivery Code(s): O80 - ENCOUNTER FOR FULL-TERM UNCOMPLICATED DELIVERY (5) Encounter for care and examination after delivery Code(s): Z39.2 - ENCOUNTER FOR ROUTINE FOLLOW-UP Assessment/Plan stable Plan pp cbc pending discharge tomorrow.
[2018-04-17 09:43] LABS: BASO % 0.5 % (0-2.0); EOS % 0.5 % (0-4.5); HEMATOCRIT 28.1 % (32.4-45.2); HEMOGLOBIN 9.6 GM/dL (10.7-15.3); LYMPH % 27.5 % (8-40); MCH 30.5 pg (25.7-33.7); MEAN CELL VOLUME 89.7 fl (80-96); MEAN PLT VOLUME 10.1 fl (7.5-11.1); MONO % 3.4 % (3.8-10.2); NEUT % 68.1 % (42.8-82.8); PLATELET COUNT 249 K/MM3 (134-434); RBC 3.14 M/mm3 (3.60-5.2); RDW 14.2 % (11.6-15.6); WHITE BLOOD COUNT 11.5 K/mm3 (4.0-10.0)
[2018-04-17] MEDS ORDERED: FLU VACCINE QUAD 60 MCG/0.5 ML (MDV 18-19) IM ONE (10:00)
[2018-04-17] MEDS ORDERED: DIPHTH,PERTUSS(ACELL),TET 0.5 ML DISP.SYRIN IM ONE (10:00)
[2018-04-17] MEDS: PRENATAL VITAMINS W/ FOLIC ACID TABLET (FP) PO SCH (10:53)
[2018-04-18] MEDS: IBUPROFEN 600 MG TABLET (FP) PO PRN (00:09)
[2018-04-18] MEDS: ACETAMINOPHEN 325 MG TABLET (FP) PO PRN (00:10)
--- NOTE | 2018-04-18 07:20 | DS ---
Physical Exam-SENIOR PARTNER Vital Signs: Vital Signs Temperature 98.3 F 04/17/18 20:51 Pulse Rate 73 04/17/18 20:51 Respiratory Rate 20 04/17/18 20:51 Blood Pressure 108/48 L 04/17/18 20:51 O2 Sat by Pulse Oximetry (%) 99 04/16/18 22:45 Constitutional: Yes: Well Nourished Eyes: Yes: WNL HENT: Yes: WNL Neck: Yes: WNL Cardiovascular: Yes: WNL Respiratory: Yes: WNL Gastrointestinal: Yes: WNL ...Rectal Exam: Yes: WNL Renal/: Yes: WNL Pelvis: Yes: WNL ....Post : Yes: Uterus firm, Uterus non-tender, Moderate lochia rubra ( perineal soreness) Breast(s): Yes: WNL Extremities: Yes: WNL. No: Calf Tenderness Integumentary: Yes: WNL Wound/Incision: Yes: Clean/Dry Neurological: Yes: WNL, Alert, Babinski negative ...Motor Strength: WNL Psychiatric: Yes: WNL, Alert, Oriented Labs: CBC, BMP 04/17/18 08:30 04/16/18 13:50 Delivery - Delivery Vaginal Delivery: No Problems, Spontaneous (Baby Girl delivered vx , [place] position, 9/9 , cord around the body tight , oral nasal suction was done ,placenta & membranes delivered completely .perineum, vagina is intact) Type of Anesthesia: Epidural Episiotomy/Laceration: None EBL (cc): 250 (dang output 175 ml ) Delivery, Single - Stages of Labor Date 1st Stage Initiatied: 04/16/18 Time 1st Stage Initiated: 18:00 Date 2nd Stage Initiated: 04/16/18 Time 2nd Stage Initiated: 23:15 Date of Delivery: 04/16/18 Time of Delivery: 23:26 Time Placenta Delivered: 23:30 Placenta: Yes: Spontaneous, Uterine Exploration - Condition of Service Dog Trainer/Automotive Alignment Specialist Present: No Gender: Female Weight: 5 lb 11 oz Position: Left, OA Total Hours ROM (Hrs/Mins): 11 min - 1 Minute Total Score: 9 10 Minutes Total Score: 9 - [place] Feeding Plan Initial Plan: Elected not to breastfeed exclusively throughout hospitalization Remarks - Remarks Remarks: 23 yrs , 39.2 weeks by Dates & sono admitted for induction of labor due to diminished interval growth . PNC at , [facility] GBS neg Cervidil inserted at 1.00 PM 04/16/18 , removed at 11.19 PM pt v/s stable pp course unstable anemia counselled discharge today Discharge Summary Reason For Visit: LABOR Current Active Problems Elective induction of labor planned (Acute) Encounter for care and examination after delivery (Acute) IUGR (intrauterine growth restriction) affecting care of mother (Acute) with 39 completed weeks gestation (Acute) Condition: Stable - Instructions Diet, Activity, Other Instructions: Post Instructions DIET: Continue good diet high in protein, calcium, and iron rich foods. Drink at least eight (8) glasses of water daily in addition to other fluids. ___ Regular diet MEDICATIONS: Continue vitamins and iron as previously directed. Motrin and Tylenol may be taken for minor discomfort. ACTIVITY: Mild to moderate exercise may be started in two (2) weeks. Take frequent rest periods. Resume normal activity after six (6) week check up. WOUND CARE OF OPERATIVE SITE: Continue use of perineal bottle until vaginal discharge stops. Keep area clean. Shower daily. Keep abdominal wound dry. Report any drainage or redness to physician. Tub baths, tampons and douches are not permitted for [address] Breast feeding & or Bottle feeding BREAST CARE: (For those that are not ): If engorgement occurs: Wear tight fitting bra. Take Tylenol or Motrin for pain. Apply cold packs (ice in bags to each breast ) FAMILY PLANNING: There are many control alternatives to pursue and they should be discussed at your first office visit. You may resume sexual activity after your six (6) week check up. (Remember, is not a contraceptive) NEXT PHYSICIAN APPOINTMENT: Be certain to call for a six (6) week appointment, unless otherwise directed. Call Clinic or got to Emergency Dept if you have any of the following: Heavy vaginal bleeding Painful urination Leg pain Unusual odor noted to vaginal bleeding High fever Red streaking noted on breast Referrals: Rosy Gotti MD [Staff Physician] - Disposition: HOME - Home Medications Comprehensive Discharge Medication List: Ambulatory Orders Pnv No.95/Ferrous Fum/Folic AC [ Formula Tablet] 1 each PO DAILY Acetaminophen [Tylenol .Regular Strength -] 650 mg PO Q3H PRN tablet 04/17/18 Ferrous Sulfate [Feosol] 325 mg PO BIDWM tab 04/17/18 Ibuprofen [Motrin -] 200 mg PO Q4H PRN tablet 04/17/18 Vitamins (Sjr) - 1 tab PO DAILY tablet 04/17/18
[2018-04-18] MEDS: FERROUS SO4 325 MG TABLET (FP) PO SCH (08:00)
[2018-04-18] MEDS: PRENATAL VITAMINS W/ FOLIC ACID TABLET (FP) PO SCH (09:23)
[2018-04-18 11:43] VITALS: BP 118/67; PULSE 78; TEMP 98
[2018-04-18] MEDS ORDERED: SENNOSIDES/DOCUSATE COMBO (SENNA PLUS) TABLET (UD) PO PRN (22:00)
== END 2018-04-18 13:00 | disposition home or self-care (01) | DRG 560 ==
LOC: JLDR 12:25 → J3W 04-17 01:40
PROVIDERS: ADMIT Obstetrics & Gynecology; ATTEND Obstetrics & Gynecology
PROC: 10E0XZZ Delivery of Products of Conception, External Approach (ICD-10-PCS; principal; 2018-04-16)
DX: O36.5930 Maternal care for other known or suspected poor fetal growth, third trimester, not applicable or unspecified (principal); O69.89X0 Labor and delivery complicated by other cord complications, not applicable or unspecified; O99.02 Anemia complicating childbirth; D64.9 Anemia, unspecified; Z3A.39 39 weeks gestation of pregnancy; Z37.0 Single live birth
CPT/HCPCS: 36415; 36600; 59409; 80048; 82803; 85025; 85610; 85730; 86593; 86850; 86900; 86901; 90686; 90715; G0008

== ENCOUNTER 2018-04-27 21:43 | Emergency (ER) | payer OTHER ==
--- NOTE | 2018-04-27 21:49 | PDOC ---
Rapid Medical Evaluation Time Seen by Provider: 04/27/18 21:46 Medical Evaluation: Allergies Allergy/AdvReac Type Severity Reaction Status Date / Time No Known Allergies Allergy Verified 04/16/18 20:30 04/27/18 21:46 I have performed a brief in-person evaluation of this patient. The patient presents with a chief complaint of: dysuria s/p vaginal delivery 04/16 Pertinent physical exam findings: abd SNTND. Left CVAT. I have ordered the following: urine The patient will proceed to the ED for further evaluation. 04/27/18 21:48 Discharge Disposition - Diagnosis Dysuria - Referrals - Patient Instructions - Post Discharge Activity
[2018-04-27 21:50] VITALS: BP 116/61; PULSE 78; TEMP 97.8; BMI 33.2
[2018-04-27 22:26] LABS: URINE APPEARANCE TURBID; URINE BILIRUBIN NEGATIVE (<2.0 mg/dL); URINE COLOR YELLOW; URINE GLUCOSE (UA) NEGATIVE (NEGATIVE); URINE KETONE NEGATIVE (NEGATIVE); URINE LEUK ESTERASE 3+ (NEGATIVE); URINE NITRITE POSITIVE (NEGATIVE); URINE PROTEIN 2+ (NEGATIVE); URINE UROBILINOGEN NEGATIVE mg/dL (0.2-1.0)
--- NOTE | 2018-04-27 22:32 | PDOC ---
History of Present Illness - General Chief Complaint: Urinary Problem Stated Complaint: GAVE ONE WEEK AGO, HAS PAIN Time Seen by Provider: 04/27/18 21:46 - History of Present Illness Initial Comments: 04/27/18 22:32 23-year-old female with 4 days of dysuria without systemic symptoms Past History - Past Medical History Allergies/Adverse Reactions: Allergies Allergy/AdvReac Type Severity Reaction Status Date / Time No Known Allergies Allergy Verified 04/27/18 21:51 Home Medications: Ambulatory Orders Acetaminophen [Tylenol -] 650 mg PO Q4H 04/27/18 Nitrofurantoin Monohyd/M-Cryst [Macrobid -] 100 mg PO BID #14 capsule 04/27/18 Asthma: No Cancer: No Cardiac Disorders: No COPD: No DVT: No Diabetes: No HTN: No Seizures: No Thyroid Disease: No - Immunization History Td Vaccination: No Immunization Up to Date: Yes - Suicide/Smoking/Psychosocial Hx Smoking Status: No Smoking History: Never smoked Have you smoked in the past 12 months: No Number of Cigarettes Smoked Daily: 0 Cigars Per Day: 0 Information on smoking cessation initiated: No Hx Alcohol Use: No Drug/Substance Use Hx: No Substance Use Type: None Hx Substance Use Treatment: No Review of Systems - Review of Systems : Yes: Burning, Dysuria *Physical Exam - Vital Signs Last Vital Signs Temp Pulse Resp BP Pulse Ox 97.8 F 78 16 116/61 100 04/27/18 21:48 04/27/18 21:48 04/27/18 21:48 04/27/18 21:48 04/27/18 21:48 - Physical Exam Comments: 04/27/18 22:32 HEAD: NC/AT EYES: Conjuntiva clear MS: Full ROM in all joints without edema NEUROLOGIC: No gross sensory or motor deficits, NVID SKIN: Normal color and temperature no lesions or rashes Moderate Sedation - Procedure Monitoring Vital Signs: Procedure Monitoring Vital Signs Temperature 97.8 F 04/27/18 21:48 Pulse Rate 78 04/27/18 21:48 Respiratory Rate 16 04/27/18 21:48 Blood Pressure 116/61 04/27/18 21:48 O2 Sat by Pulse Oximetry (%) 100 04/27/18 21:48 Medical Decision Making - Medical Decision Making 04/27/18 22:42 UTI will treat with Macrobid *DC/Admit/Observation/Transfer Diagnosis at time of Disposition: Dysuria, UTI (urinary tract infection) - Discharge Dispostion Disposition: HOME Condition at time of disposition: Stable Decision to Admit order: No - Prescriptions Prescriptions: Nitrofurantoin Monohyd/M-Cryst [Macrobid -] 100 mg PO BID #14 capsule - Referrals Referrals: Zoraida Cunningham [Primary Care Provider] - - Patient Instructions Printed Discharge Instructions: Urinary Tract Infection, DI for Urinary Tract Infection (UTI) Additional Instructions: Please take the antibiotics as directed. Return to the emergency room for worsening symptoms and follow-up with your primary care physician in one to 2 days for further evaluation and treatment options. - Post Discharge Activity
[2018-04-27 23:22] LABS: EPI CELLS RARE /HPF (FEW); URINE BACTERIA MODERATE /hpf (NONE SEEN)
== END 2018-04-27 23:01 | disposition home or self-care (01) ==
LOC: JERFT 21:43
DX: O90.89 Other complications of the puerperium, not elsewhere classified (principal); O86.29 Other urinary tract infection following delivery
CPT/HCPCS: 81003; 81015; 87086; 87186; 99281-25

== ENCOUNTER 2021-10-22 15:24 | Inpatient (IN) | payer OTHER ==
[2021-10-22] MEDS: ELECTROLYTE-148 SOLN 1,000 ML IV SCH ×2 (16:15→23:40)
[2021-10-22 16:30] VITALS: BMI 36.6
[2021-10-22] MEDS ORDERED: SODIUM PHOSPHATE/NA BIPHOS 133 ML ENEMA RC ONE (16:48)
[2021-10-22] MEDS ORDERED: DINOPROSTONE 10 MG VAGINAL SUPPOSITORY VG ONE (16:49)
[2021-10-22] MEDS ORDERED: PROMETHAZINE HCL 25 MG/1 ML VIAL IVPUSH ONE (16:51)
[2021-10-22] MEDS ORDERED: BUTORPHANOL TARTRATE 2 MG/ML VIAL IVPB ONE (16:51)
[2021-10-22 17:33] LABS: BASO % 1.4 % (0-2.0); EOS % 0.6 % (0-4.5); HEMATOCRIT 32.3 % (32.4-45.2); HEMOGLOBIN 11.4 GM/dL (10.7-15.3); LYMPH % 23.1 % (8-40); MCH 31.7 pg (25.7-33.7); MCHC 35.4 g/dl (32.0-36.0); MEAN CELL VOLUME 89.7 fl (80-96); MEAN PLT VOLUME 9.4 fl (7.5-11.1); MONO % 6.1 % (3.8-10.2); NEUT % 68.8 % (42.8-82.8); PLATELET COUNT 279 10^3/uL (134-434); RDW 13.9 % (11.6-15.6); WHITE BLOOD COUNT 10.6 K/mm3 (4.0-10.0)
[2021-10-22 17:40] LABS: INR 0.94 (0.83-1.09); PROTHROMBIN TIME (PATIENT) 10.8 SEC (9.7-13.0)
[2021-10-22 17:43] LABS: ACTIVATED PTT 25.4 SECONDS (25.2-36.5)
[2021-10-22 17:54] LABS: BLOOD UREA NITROGEN 10.7 mg/dL (7-18); CALCIUM 8.7 mg/dL (8.5-10.1)
[2021-10-22 17:58] LABS: CREATININE 0.6 mg/dL (0.55-1.3)
[2021-10-23] MEDS ORDERED: OXYTOCIN 30 UNITS in 0.9% NS 30 UNIT/500 ML INFUS.BAG IVPB SCH (06:00)
[2021-10-23] MEDS ORDERED: OXYTOCIN 30 UNITS in 0.9% NS 30 UNIT/500 ML INFUS.BAG IVPB ONE (06:44)
[2021-10-23] MEDS: ELECTROLYTE-148 SOLN 1,000 ML IV SCH (06:45)
[2021-10-23] MEDS ORDERED: FENTANYL/BUPIVACAINE/NS/PF - PCEA - 50 ML DISP.SYRIN EP ONE (07:07)
[2021-10-23] MEDS ORDERED: NALOXONE HCL 0.4 MG/ML VIAL IVPUSH PRN (07:50)
[2021-10-23] MEDS ORDERED: FENTANYL/BUPIVACAINE/NS/PF - PCEA - 50 ML DISP.SYRIN EP SCH (08:00)
[2021-10-23 08:11] LABS: BASO % 0.8 % (0-2.0); EOS % 0.5 % (0-4.5); HEMOGLOBIN 12.5 GM/dL (10.7-15.3); LYMPH % 31.8 % (8-40); MCH 30.6 pg (25.7-33.7); MCHC 33.7 g/dl (32.0-36.0); MEAN CELL VOLUME 90.9 fl (80-96); MEAN PLT VOLUME 10.3 fl (7.5-11.1); MONO % 5.6 % (3.8-10.2); NEUT % 61.3 % (42.8-82.8); PLATELET COUNT 302 10^3/uL (134-434); RBC 4.07 M/mm3 (3.60-5.2); RDW 13.8 % (11.6-15.6); WHITE BLOOD COUNT 9.2 K/mm3 (4.0-10.0)
[2021-10-23] MEDS ORDERED: OXYTOCIN 20 UNITS in 0.9% NS 20 UNIT/1,000 ML INFUS.BAG IV ONE (09:52)
[2021-10-23] MEDS ORDERED: LIDOCAINE HCL 1% PRESERVATIVE FREE - 30ML VIAL ONE (10:06)
[2021-10-23] MEDS ORDERED: BENZOCAINE 20% 57 GM BOTTLE TP PRN (11:39)
[2021-10-23] MEDS ORDERED: ACETAMINOPHEN 325 MG TABLET (FP) PO PRN (11:39)
[2021-10-23] MEDS ORDERED: BENZOCAINE 28 GM HEMORRHOIDAL OINTMENT TP PRN (11:39)
[2021-10-23] MEDS ORDERED: BISACODYL 10 MG SUPP.RECT RC PRN (11:39)
[2021-10-23] MEDS ORDERED: oxyCODONE HCL 5 MG TABLET PO PRN (11:39)
[2021-10-23] MEDS ORDERED: METHYLERGONOVINE MALEATE 0.2 MG/1 ML AMP IM PRN (11:39)
[2021-10-23] MEDS ORDERED: WITCH HAZEL 50% (TUCKS) 40 PAD/JAR PAD TP PRN (11:39)
[2021-10-23] MEDS ORDERED: OXYTOCIN 20 UNITS in 0.9% NS 20 UNIT/1,000 ML INFUS.BAG IV SCH (11:45)
[2021-10-23] MEDS: FERROUS SO4 325 MG TABLET (FP) PO SCH (16:54)
[2021-10-23] MEDS: IBUPROFEN 600 MG TABLET (FP) PO PRN (19:29)
[2021-10-24] MEDS: FERROUS SO4 325 MG TABLET (FP) PO SCH ×2 (09:08→17:07)
[2021-10-24] MEDS: PRENATAL VITAMINS W/ FOLIC ACID TABLET (FP) PO SCH (09:08)
[2021-10-24 09:15] LABS: BASO % 0.6 % (0-2.0); EOS % 1.7 % (0-4.5); HEMATOCRIT 33.5 % (32.4-45.2); HEMOGLOBIN 11.6 GM/dL (10.7-15.3); LYMPH % 23.5 % (8-40); MCH 31.6 pg (25.7-33.7); MCHC 34.6 g/dl (32.0-36.0); MEAN CELL VOLUME 91.4 fl (80-96); MEAN PLT VOLUME 9.4 fl (7.5-11.1); MONO % 4.9 % (3.8-10.2); NEUT % 69.3 % (42.8-82.8); PLATELET COUNT 257 10^3/uL (134-434); RBC 3.66 M/mm3 (3.60-5.2); RDW 14.2 % (11.6-15.6); WHITE BLOOD COUNT 11.9 K/mm3 (4.0-10.0)
[2021-10-24] MEDS ORDERED: DIPHTH,PERTUSS(ACELL),TET 0.5 ML DISP.SYRIN IM ONE (14:00)
[2021-10-24] MEDS: IBUPROFEN 600 MG TABLET (FP) PO PRN (20:49)
[2021-10-24] MEDS ORDERED: SENNOSIDES/DOCUSATE COMBO (SENNA PLUS) TABLET (UD) PO PRN (22:00)
[2021-10-24 22:33] VITALS: RESP 18
[2021-10-25] MEDS: IBUPROFEN 600 MG TABLET (FP) PO PRN (06:10)
[2021-10-25] MEDS: PRENATAL VITAMINS W/ FOLIC ACID TABLET (FP) PO SCH (09:00)
[2021-10-25] MEDS: FERROUS SO4 325 MG TABLET (FP) PO SCH (09:27)
[2021-10-25 10:12] VITALS: BP 98/62; PULSE 76; TEMP 98
== END 2021-10-25 11:15 | disposition home or self-care (01) | DRG 560 ==
LOC: JLDR 15:24 → J3W 10-23 13:25
PROVIDERS: ADMIT Obstetrics & Gynecology; ATTEND Obstetrics & Gynecology
PROC: 3E033VJ Introduction of Other Hormone into Peripheral Vein, Percutaneous Approach (ICD-10-PCS; 2021-10-22)
PROC: 10E0XZZ Delivery of Products of Conception, External Approach (ICD-10-PCS; principal; 2021-10-23)
PROC: 3E0P7VZ Introduction of Hormone into Female Reproductive, Via Natural or Artificial Opening (ICD-10-PCS; 2021-10-23)
PROC: 10H073Z Insertion of Monitoring Electrode into Products of Conception, Via Natural or Artificial Opening (ICD-10-PCS; 2021-10-23)
DX: O48.0 Post-term pregnancy (principal); Z86.19 Personal history of other infectious and parasitic diseases; Z3A.41 41 weeks gestation of pregnancy; Z37.0 Single live birth
CPT/HCPCS: 36415; 59409; 80048; 85025; 85610; 85730; 86780; 86850; 86900; 86901; 90715; C9803-CS; U0003; U0005